=== PATIENT | male | born 1970 | race Caucasian/White ===

== ENCOUNTER 2020-07-11 15:20 | Inpatient (IN) | payer OTHER ==
[~2020-07-11] VITALS: Ht 193 cm; Wt 71.2 kg
[2020-07-11 15:26] VITALS: BP 97/63
[2020-07-11 16:20] LABS: HEMATOCRIT 43.6 % (42.0-52.0); HEMOGLOBIN 14.7 gm/dL (14.0-18.0); MCH 28.9 pg (26.0-34.0); MCHC 33.7 g/dL (28.0-37.0); MCV 85.7 fL (80.0-100.0); RBC 5.09 mil/uL (4.50-6.00)
[2020-07-11 16:28] LABS: ANION GAP 14 mmol/L (7-16); BUN 12 mg/dL (7-18); CALCIUM 9.2 mg/dL (8.5-10.1); CHLORIDE 93 mmol/L (98-107); CO2 24 mmol/L (21-32); CREATININE 0.9 mg/dL (0.7-1.3); GLUCOSE 450 mg/dL (74-106); POTASSIUM 3.8 mmol/L (3.5-5.1); SODIUM 131 mmol/L (136-145)
[2020-07-11] MEDS ORDERED: ADDERALL 10 MG10 MG PO (16:30)
[2020-07-11] MEDS ORDERED: NOVOLOG100 UNIT/1 SUBQ (16:31)
[2020-07-11] MEDS ORDERED: LEVEMIR100 UNIT/1 SUBQ (16:32)
[2020-07-11 16:33] LABS: APTT 31.3 Seconds (24.5-32.8); INR 1.4; PROTIME 14.3 Seconds (9.3-11.4)
[2020-07-11 16:37] LABS: MAGNESIUM 1.7 mg/dL (1.8-2.4); TROPONIN-I <0.06 ng/mL (<0.06)
[2020-07-11 21:01] VITALS: BP 111/70
[2020-07-11 21:25] VITALS: BP 90/62
[2020-07-12 00:05] VITALS: BP 132/87
[2020-07-12 00:34] VITALS: BP 117/70
[2020-07-12 05:57] VITALS: BP 100/72
[2020-07-12 06:01] LABS: HEMATOCRIT 37.9 % (42.0-52.0); MCH 28.6 pg (26.0-34.0); MCHC 33.3 g/dL (28.0-37.0); RBC 4.41 mil/uL (4.50-6.00); RDW 12.7 % (10.5-14.5); WBC 10.4 thou/uL (4.0-11.0)
[2020-07-12 06:08] LABS: HEMOGLOBIN 12.6 gm/dL (14.0-18.0)
[2020-07-12 06:26] LABS: URINE BILIRUBIN NEGATIVE (Negative); URINE BLOOD NEGATIVE (Negative); URINE CLARITY CLEAR; URINE COLOR YELLOW; URINE GLUCOSE-RANDOM* 1+ (Negative); URINE KETONES NEGATIVE (Negative); URINE LEUKOCYTES-REFLEX NEGATIVE (Negative); URINE NITRITE-REFLEX NEGATIVE (Negative); URINE PROTEIN (DIPSTICK) 2+ (Negative); URINE SPECIFIC GRAVITY 1.025 (1.005-1.035); URINE UROBILINOGEN 0.2 E.U./dl (0.2-1.0)
[2020-07-12 06:34] LABS: ALBUMIN 2.5 g/dL (3.4-5.0); CALCIUM 8.3 mg/dL (8.5-10.1); CREATININE 0.7 mg/dL (0.7-1.3); POTASSIUM 4.3 mmol/L (3.5-5.1); TOTAL BILIRUBIN 0.2 mg/dL (0.2-1.0); TOTAL PROTEIN 5.7 g/dL (6.4-8.2)
[2020-07-12 06:58] LABS: CASTS None Seen /LPF (None Seen); MUCUS 0-3 Light strn/LPF (None Seen); SQUAMOUS 0-3 Few /LPF (0-3)
[2020-07-12 06:59] LABS: BACTERIA-REFLEX None Seen /HPF (None Seen); CRYSTALS None Seen /LPF (None Seen); URINE RBC None Seen /HPF (0-2); URINE WBC-REFLEX 0-5 Rare /HPF (0-5)
--- NOTE | 2020-07-12 07:42 | EKG ---
[facility] [place] [address] ELECTROCARDIOGRAM REPORT Name: PITA OSPINA Room #: 449-I ADM IN M.R.#: [id number] Admission: 07/11/20 Attend Phys: Earnest Abel MD Discharge: Date of : 72 Report #: [id number] THIS REPORT FOR: cc: VERNON - Sarina family physician/PCP VERNON - Sarina family physician/PCP Nayan Tsang MD [facility] ~ THIS REPORT FOR: //name// [facility] ED Test Date: 2020-07-11 Test Time: 17:31:35 Pat Name: PITA OSPINA Department: Room: [facility] Gender: M Mysql Database Developer: Tami Patel : 1970 Requested By: Bacilio Quick Order Number: [id number] MD: Nayan Tsang Measurements Intervals Clarence Rate: 87 P: 66 AR: 134 QRS: 72 QRSD: 90 T: 46 QT: 352 QTc: 424 Interpretive Statements Sinus rhythm No previous ECG available for comparison Electronically Signed On 07-12-2020 7:41:49 CDT by Nayan Tsang [email or web address] <ELECTRONICALLY SIGNED> By: Nayan Tsang MD, FACC 07/12/20 0741 30 30 Nayan Tsang MD, FAC /EPI
--- NOTE | 2020-07-12 07:55 | NUR ---
ASSUMED CARE OF PT FROM ED AT 2115HRS. PT AOX4 AND LETS NEEDS BE KNOWN. PT IS UP AD MARCELO WITH PROSTHESIS. PT WAS ORIENTED TO THE UNIT AND HIS ROOM. PT SIGNED OWN CONSENT AND ANSWERED ADMISSION RELATED QUESTIONS. PT REPORTED PAIN AND WAS TREATED WITH PRN PAIN MEDS. PT DENIED NAUSEA AND SOA. WOUND PICS TAKEN. PT IS NON COMPLENT WITH DIETERY RESTRICTION AND IS UNHAPPY ABOUT NOT GETTING WOODS FOR BREAKFAST. VSS AND NO S/F OF ACUTE DISTRESS. REPORT GIVEN TO MORNING RN.
--- NOTE | 2020-07-12 11:46 | NUR ---
PT ADMITTED RELATED TO RLQ WOUND AND CELLULITIS. CM REVIEWED CHART AND SPOKE WITH CARE TEAM. CM CALLED AND SPOKE WITH PT OVER THE PHONE THIS DAY. PT APPEARED TO BE A&O X4. CM ROLE INTRODUCED. PT INDICATED THAT HE RESIDES IN A HOUSE WITH HIS MOTHER WITH 3 STEPS TO ENTER AND 14 STEPS TO BASEMENT LAUNDRY HER USES INSIDE. PT INDICATED THAT HE USES A PROSTHESIS, CANE OR WC TO ASSIST WITH MNOBILITY AT HOME. PT INDICATED THAT HIS PCP IS DR. LAUREN CHAPA [place]. THERE IS MENTION OF A DR. HURTADO AT [facility] IN HIS MEDICAL RECORD WELL. PT INDICATED NO HH OR HCBS. PT INDICATED THAT HE PLANS TO RETURN HOME ONCE MEDICALLY STABLE. CM TO FOLLOW INDICATED WITH DC PLANNING.
--- NOTE | 2020-07-12 11:55 | NUR ---
ASSUMED CARE AT 0700 THIS MORNING. PT. AWAKE, SITTING ON HIS BED. HE IS VERY IRRITABLE. HE WANTS MEDICATIONS: SOMETHING FOR HIS ANXIETY, MEDS FOR HIS ADHD, AND A CIGARETTE. PT. MEDICATIONS TAKEN TO HIM. HE WAS GIVEN A NICOTINE PATCH WITH HIS MRONING MEDICATIONS. UPSET WITH HE FOOD HERE. HE WANTS DOUBLE PORTIONS. HE TOOK ALL HIS MORNING MEDICATIONS WITHOUT PROBLEMS. HE WAS GIVEN A PAIN MEDICATIONS AT 0500 THIS MORNING (HE ALSO WANTED THIS MED.) DR. DIAZ HERE AND SPOKE WITH PT. 3 CONSULTS PLACED, 1) DR. Hillary LYLES, 2) DR. CHECO CHEUNG, AND DR. LIZ OSULLIVAN. DR. MULLER NOTIFIED THEM.
[2020-07-12 12:27] VITALS: BP 100/72
[2020-07-12 12:29] VITALS: BP 100/72
[2020-07-12 19:33] VITALS: BP 124/63
[2020-07-13 00:05] VITALS: BP 132/87
[2020-07-13 03:59] VITALS: BP 113/69
--- NOTE | 2020-07-13 07:35 | NUR ---
ASSUMED PT CARE AROUND 193. AXOX4. AD MARCELO. VSS. NO S/S ACUTE DISTRESS NOTED OR REPORTED AT THIS TIME. CARE TRANSFERRED TO AM RN AT THIS TIME.
[2020-07-13 08:55] VITALS: BP 119/72
[2020-07-13 16:32] VITALS: BP 127/73
[2020-07-13 19:51] VITALS: BP 113/801
--- NOTE | 2020-07-14 05:42 | NUR ---
Assumed pt care at 1900. A/OX4,VSS. Pt c/o pain to right foot not controlled by [place]; LOP 06/29 Garment Patternmaker Ramandeep notified and order given for Morphine 4mg and administered and effective. Dressing on left stump C/D/I,Right toe area CHRISS painted in betadine. Pt leaves bed up high in the air,educated on fall safety but adamant to put it down. Pt non compliant with diet and asking for food throughout the night.IVF infusing via LFA w/o any problems. Resting quietly at this time will continue to monitor pt. Pt continent of B&B,voiding per urinal at [facility].
[2020-07-14 08:00] VITALS: BP 114/66
--- NOTE | 2020-07-14 15:20 | NUR ---
Assumed pt care at 7am.Assessment completed.vss.Pt tolerated meds and diet. Around 1520,pt told this rn that he wanted to go to hospital parking lot to visit his dtr.Rn encouraged pt aske the dtr and mom to come to room but pt refused and said he wanted fresh air and also wanted to smoke.Dr Abel notified.She wanted pt signed AMA if refused to follow instructions.Pt notified.While this rn was in another pt room,pt left the floor with iv pump with antibiotic infusing.Security notified. While pt was outside,security was with him.Pt came back to floor accompanied by security.According to report given by security,pt didnot smoke.Dr Abel agreed to keep pt instead of leaving AMA.Pt now back in bed watching tv.Will continue to monitor.
[2020-07-14 17:39] VITALS: BP 137/71
[2020-07-14 19:08] VITALS: BP 135/77
--- NOTE | 2020-07-15 04:16 | NUR ---
ASSUMED CARE OF PT AT 1900HRS. PT AOX4 AND LETS NEEDS BE KNOWN. PT IS UP AD MARCELO. PT REPORTED SOME PAIN AND WAS TREATED WITH PRN PAIN MEDS. PT DENIED NAUSEA OR SOA. PT TOOK A SHOWER THIS SHIFT. WOUND CARE COMPLETED. VSS AND NO S/S OF ACUTE DISTRESS. WILL CONTINUE TO MONITOR
[2020-07-15 08:52] VITALS: BP 133/72
--- NOTE | 2020-07-15 14:49 | NUR ---
PT CONTINUES WITH IV VANC AND ZOSYN, CONTINUED WC. CARE TEAM INDICATED WOULD LIKELY BENEFIT FROM CONTINUED TREATMENT. CM TO FOLLOW INDICATED WITH DC PLANNING.
--- NOTE | 2020-07-15 14:57 | NUR ---
Received awake on bed. Initally upset and verbally abusive to staff members, calmed down eventually. On MS, not on telemetry; no complains and signs of chest pain, crushing sensation and heaviness. On room air. On heart healthy diet- tolerating well; no nausea, no vomiting and no abdominal pain noted. Assisted in ADLs. On blood sugar monitoring, taken and recorded accordingly; with sliding scale insulin ordered- given as prescribed. Falls bundle in place- pt non compliant, raises the bed up. Continent of bowel and bladder, able to go to the toilet independently. With NS at 125cc/hr, infusing well at L FA; on IV antibiotics as well. With L BKA- stump fully healed; no dressing in place. With R foot- a/w wound care decision if to proceed with surgery or continue Iv antibiotics. With prosthesis at bedside. Complained of pain, due PRN pain meds given as prescribed. Dr Abel informed as well that current pain regimen not helping with pt's migraine as reported. To continue monitoring patient.
[2020-07-15 15:36] VITALS: BP 148/97
[2020-07-15 20:15] VITALS: BP 121/73
--- NOTE | 2020-07-16 04:20 | NUR ---
Assumed pt care at 1900. A/OX4,VSS. Up independently in room has a left prosthetic leg,pt likes leaving his bed up high despite fall safety education. Questioning when he can get Adderall at HS;informed again the order was changed to once a day and verbalized no further quiestions voiced. C/o pain to Right foot,medicated per EMAR w/relief reported. Pt resting quietly eyes closed at this time no distress noted. IVF infusing via LFA w/o any problems noted. Will continue to monitor pt.
[2020-07-16 07:00] VITALS: BP 128/88
--- NOTE | 2020-07-16 10:53 | NUR ---
PT. IS IRRITIABLE AND COMPLAINS WE ARE WAKING HIM UP. COMPLAINS HE IS UNABLE TO SLEEP AND IS IN PAIN. WANTS DOUBLE DOSE OF ADDERALL AND MORE COVERAGE FOR PAIN.
--- NOTE | 2020-07-16 12:35 | NUR ---
I have reviewed the student's documentation and administered medication with student.
--- NOTE | 2020-07-16 13:30 | NUR ---
Assumed pt care at 7am.Assessment complete.vss.Pt up adlib in the room.Pt has good appetite.Meds given as ordered and well tolerated.Pt left for mri this afternoon.Pt room was smells of smoke and when asked if smoking,he said he just burnt a letter written to his exwife.Environmental Professional seized from pt and kept in med room till dc.No further c/o. Will continue to monitor.
[2020-07-16 20:09] VITALS: BP 113/68
--- NOTE | 2020-07-16 23:17 | NUR ---
Care assumed of patient at 1915: Patient laying in bed at start of shift. Sleeping, easily aroused. Reported pain rated 10/10 during assessment. Administered PRN Hydrocodone. Patient easily irritable, restless. Dressing intact to right great toe. Dressing intact to left lower extremity stump. Reported being hungry and requested box lunch. Food provided. Took HS medication whole without difficulty. Reported feeling anxious and depressed rated 10/10. Stated that he has "a lot of stressors right now". Fall precaution education provided. Patient declines to have bed in lowest position and becomes agitated during education. Patient was able to fall asleep rather quickly after taking HS medication and is resting quietly at this time.
[2020-07-17 07:59] VITALS: BP 127/88
--- NOTE | 2020-07-17 15:08 | NUR ---
PATIENT WAS IN BED ASLEEP WHEN CARE ASSUMED, HE IS ALERT, AND ORIENTED X 3-4, ABLE TO VOICE NEED. BLOOD SUGAR BEFORE BREAKFAST WAS 269, INSULIN GIVEN PER ORDER. AT LUNCH, BLOOD SUGAR WAS 145, DID NOT REQUIRE SLIDING SCALE INSULIN, PATIENT DECLINE SCHEDULE INSULIN, " I AM NOT GOING TO EAT ENYWAY". PATIENT LIKE TO KEEP BED UP HIGH DESPITE EDUCATION ON FALL RISK. DRESSING TO RIGHT EXTREMITY STUMP, AND RIGHT GREAT TOE IN PLACE. IV LINE IN PLACE, NO SIGN OF INFILTRATION NOTED. PATIENT HAS BEEN SLEEPING OFF/ON THROUGH THIS SHIFT. NO SIGN OF ACUTE DISTRESS NOTED AT THIS TIME, CALL LIGHT IN REACH, WILL MONITOR FOR SAFETY.
--- NOTE | 2020-07-17 15:41 | NUR ---
PT CONTINUES ON IV VANC AND ZOSYN. PT HAD BEDSIDE DEBRIDEMENT YESTERDAY. CM TO FOLLOW INDICATED WITH DC PLANNING.
[2020-07-17 15:53] VITALS: BP 122/79
[2020-07-17 19:40] VITALS: BP 124/74
--- NOTE | 2020-07-18 07:37 | NUR ---
Assumed pt care at 1900. A/OX4,VSS. Up with left prosthetic leg/cane. C/o pain to right foot medicated per EMAR with some relief reported. rounded on pt at HS,no new med changes made. Wound care done to right toe w/o problems. IVF infusing via LFA w/o problems. Pt likes to leave his bed up high despite fall risk education. Resting quietly w/o distress noted.
[2020-07-18 08:19] VITALS: BP 120/73
[2020-07-18 10:57] VITALS: BP 120/73
[2020-07-18] MEDS ORDERED: DOXEPIN 50MG CA50 MG PO (12:24)
[2020-07-18] MEDS ORDERED: AUGMENTIN 875-1 EACH PO (12:24)
[2020-07-18] MEDS ORDERED: DIAZEPAM 2MG TAB2 MG PO (12:24)
[2020-07-18] MEDS ORDERED: BUSPIRONE HCL5 MG PO (12:24)
[2020-07-18] MEDS ORDERED: LEXAPRO20 MG PO (12:24)
[2020-07-18] MEDS ORDERED: PROTONIX 20 MG20 M1 PO (12:24)
[2020-07-18 13:27] VITALS: BP 120/73
--- NOTE | 2020-07-18 15:07 | P ---
[facility] [place] [address] PROCEDURE REPORT Name: PITA OSPINA Room #: 458-P ADM IN M.R.#: [id number] Admission: 07/11/20 Attend Phys: Earnest Abel MD Discharge: Date of : 72 Report #: [id number] THIS REPORT FOR: cc: VERNON - No family physician/PCP FAM - No family physician/PCP Samson Ortiz MD ~ CC: Earnest JUNIOR physician/PCP DATE OF SERVICE: 07/16/2020 PREPROCEDURE DIAGNOSIS: Infected diabetic ulceration of the right great toe. POSTPROCEDURE DIAGNOSIS: Infected diabetic ulceration of the right great toe. PROCEDURE PERFORMED: Surgical excisional debridement of the right great toe. DESCRIPTION OF PROCEDURE: After verbal informed consent, the patient was agreeable to debridement of the ulceration. We have obtained an MRI, which demonstrates no abscess and no evidence of osteomyelitis. I have discussed with the patient the risks of the procedure to include bleeding, infection and worsening wound healing, potentially ulceration. The patient is agreeable. A time-out was taken. Correct site, correct procedure, correct patient were identified. No anesthesia was required. The right great toe was prepped and draped in the usual sterile fashion. The preprocedure measurements were 1.5 x 1.0 x 0.1 cm. Postprocedure measurements were 2.5 x 1.7 x 0.3 cm. I have used a #15 bladed scalpel and performed sharp excisional debridement to include callus, skin and subcutaneous tissue down to a clean bleeding base. No abscess cavity or purulence was encountered. The patient tolerated the procedure well. He felt pain 0 on a scale of 1-10 during and after the procedure. Hemostasis was intact with direct pressure. The patient tolerated the procedure well without complication. <ELECTRONICALLY SIGNED> By: Samson Ortiz MD 07/18/20 1507 [id number] [id number] Samson Ortiz MD /nt
--- NOTE | 2020-07-18 15:07 | HC ---
[facility] [place] [address] CONSULTATION Name: PITA OSPINA Room #: 458-P ADM IN M.R.#: [id number] Admission: 07/11/20 Attend Phys: Earnest Abel MD Discharge: Date of : 72 Report #: [id number] THIS REPORT FOR: cc: FAM - No family physician/PCP FAM - No family physician/PCP Samson Ortiz MD ~ DATE OF SERVICE: 07/12/2020 CHIEF COMPLAINT: Infected right great toe and prior left below-knee amputation. HISTORY OF PRESENT ILLNESS: This is a 50-year-old male patient admitted to the hospital with an ulceration of his right great toe that has not been healing. He presented to the Emergency Department with redness and swelling and has been admitted and I have been asked to see him with regard to this. He has had prior problems with nonhealing ulcers on the left side, which required left below-knee amputation. He has had now right great toe ulceration and he is concerned that he is going to lose his right leg as well. He is very agitated in the room and did in fact throw an item at a nurse while I was in the room. He is somewhat verbally abusive. He seems to be frustrated by external factors unrelated to his hospitalization, currently. PAST MEDICAL HISTORY: Positive for diabetes mellitus, prior left below-knee amputation, hypertension, bipolar disorder with anxiety, noncompliance, tobacco use, recreational marijuana use, generalized debility and moderate protein-calorie malnutrition. MEDICATIONS: Currently include insulin, lorazepam, nicotine patch, pantoprazole, Zosyn, dextroamphetamine. ALLERGIES: No known drug allergies. SOCIAL HISTORY: Positive for tobacco use, marijuana use. FAMILY HISTORY: Noncontributory. REVIEW OF SYSTEMS: CONSTITUTIONAL: The patient denies fever, chills or weight loss. NEUROLOGICAL: The patient denies focal weakness, numbness or tingling. EYES: The patient denies visual changes, redness, or drainage. ENT: The patient denies earache, nasal drainage, sore throat. CARDIOVASCULAR: The patient denies chest pain, palpitations or diaphoresis. PULMONARY: The patient denies cough or shortness of breath. GASTROINTESTINAL: The patient denies nausea, vomiting, diarrhea or abdominal pain. [address] [address] CONSULTATION Name: PITA OSPINA Room #: 458-P [facility] IN M.R.#: [id number] Admission: 07/11/20 Attend Phys: Earnest Abel MD Discharge: Date of : 72 Report #: [id number] ORTHOPEDIC: The patient complains of pain and swelling of the right great toe. Other systems in a 14-point review of systems are negative. PHYSICAL EXAMINATION: VITAL SIGNS: At this time include temperature 35.8, pulse 78, respiratory rate 20, blood pressure 100/72. GENERAL: This is a moderately agitated male patient who appears to be in no physical distress, but emotionally very agitated. HEENT: Head normocephalic. NECK: Supple. LUNGS: Clear. HEART: Regular rate and rhythm. ABDOMEN: Soft, bowel sounds present. EXTREMITIES: Left BKA stump demonstrates a small callus, perhaps even preulceration, although nothing open, nothing infected. Right lower extremity demonstrates diminished distal pulses, although feet are pink, warm and dry and he has an ulcer on the plantar aspect of the right great toe. It is tender with swelling and some surrounding erythema, but no obvious drainage or odor. NEUROLOGIC: The patient is alert. He does move all 4 extremities spontaneously. He is not very cooperative. LABORATORY STUDIES: Include white blood cell count 15,000 with a hemoglobin of 14.7. Sodium 131, potassium 3.9, chloride 93, CO2 of 24, BUN 12, creatinine 0.9, glucose 450. INR is 1.4. CLINICAL IMPRESSION: 1. Diabetic foot ulceration, right great toe with underlying cellulitis and possible underlying abscess. 2. Prior left below-knee amputation with callus and preulceration to the distal stump. 3. Hypertension. 4. Type 2 diabetes mellitus. 5. Bipolar disorder with anxiety. 6. Tobacco use and recreational marijuana abuse. 7. Moderate protein-calorie malnutrition with an albumin of 2.5. RECOMMENDATIONS: At this point in time, I will recommend Betadine to the great toe. We will recommend an MRI to evaluate for underlying abscess and/or osteomyelitis. It may be worthwhile considering vascular studies as well. [address] [address] CONSULTATION Name: PITA OSPINA Room #: 458-P [facility] IN M.R.#: [id number] Admission: 07/11/20 Attend Phys: Earnest Abel MD Discharge: Date of : 72 Report #: [id number] While he is here, he may require debridement, although he is uncooperative at this time. I do appreciate being asked to see him in consultation. <ELECTRONICALLY SIGNED> By: Samson Ortiz MD 07/18/20 1507 1014 [id number] Samson Ortiz MD /nt
[2020-07-18 15:11] VITALS: BP 130/76
--- NOTE | 2020-07-18 18:13 | NUR ---
ASSUMED CARE OF PATIENT AT SHIFT CHANGE. ASSESSMENT CHARTED. MEDS GIVEN PER MAR. VSS. PATIENT IS A&OX4 AND MAKES NEEDS KNOW. PATIENT WOKE UP LATER TO EAT BREAKFAST BUT ATE 100% OF HIS FOOD. PATIENTS APPETITE HAS BEEN EXCELLENT. PATIENT WAS GETTING ABX ON HIS L FOREARM W NO ISSUES; MILD SWELLING NOTED D/T TIGHT PROTECTIVE WRAP. AFTER REMOVING SWELLING RESOLVED. PATIENT VOICES PAIN ON R GREAT TOE D/T RECENT DEBRIEDMENT. PRN PAIN MEDS WERE GIVEN. PROVIDER WAS NOTIFIED OF NEED FOR HOME PAIN MEDS. PATIENT WAS CLEARED FOR DISCHARGE WITH SELF CARE. WOUND CARE WAS PERFORMED AND DISCHARGE PICTURE WAS TAKEN AND POSTED ON CHART. PATIENT COMMUNICATED UNDERSTANDING ON WOUND CARE. PATIENT LEFT UNIT AT APPROX 1745. IV WAS DISCONTINUED. PATIENT VOICED NO OTHER ISSUES AT TIME OF DISCHARGE.
--- NOTE | 2020-07-18 19:58 | NUR ---
I AGREE WITH NURSING ASSESSMENT AND NURSING NOTE DONE BY RICHARD/SOLAR SALES REP.
== END 2020-07-18 17:46 | disposition home or self-care (01) | DRG 623 ==
LOC: ER 15:20 → EROBS 19:10 → 4W 21:01
PROVIDERS: Emergency Medicine; ADMIT Hospitalist; ATTEND Hospitalist
PROC: 0JBQ0ZZ Excision of Right Foot Subcutaneous Tissue and Fascia, Open Approach (ICD-10-PCS; principal; 2020-07-16)
DX: E11.621 Type 2 diabetes mellitus with foot ulcer (principal); L03.115 Cellulitis of right lower limb; E87.1 Hypo-osmolality and hyponatremia; E44.0 Moderate protein-calorie malnutrition; Z68.1 Body mass index [BMI] 19.9 or less, adult; E11.65 Type 2 diabetes mellitus with hyperglycemia; F41.9 Anxiety disorder, unspecified; F31.9 Bipolar disorder, unspecified; E87.8 Other disorders of electrolyte and fluid balance, not elsewhere classified; E83.42 Hypomagnesemia; E11.51 Type 2 diabetes mellitus with diabetic peripheral angiopathy without gangrene; E11.42 Type 2 diabetes mellitus with diabetic polyneuropathy; S90.415A Abrasion, left lesser toe(s), initial encounter; Z23 Encounter for immunization; Z89.612 Acquired absence of left leg above knee; Z90.49 Acquired absence of other specified parts of digestive tract; Z82.49 Family history of ischemic heart disease and other diseases of the circulatory system; Z83.3 Family history of diabetes mellitus; Z91.19 Patient's noncompliance with other medical treatment and regimen; Z79.899 Other long term (current) drug therapy
CPT/HCPCS: 10040